=== PATIENT | female | born 1980 | race Caucasian/White ===

== ENCOUNTER 2023-05-09 12:08 | Emergency (ER) | payer BC ==
[~2023-05-09] VITALS: Ht 160 cm; Wt 87.5 kg
[2023-05-09 12:59] LABS: BILIRUBIN, URINE NEGATIVE (negative); BLOOD/HGB, URINE MODERATE (Negative); KETONE, URINE NEGATIVE (Negative); LEUK ESTERASE, URINE NEGATIVE (negative); NITRITE, URINE NEGATIVE (negative)
[2023-05-09 13:06] LABS: BASOPHILS 0.3 % (0-2); EOSINOPHILS 0.2 % (0-6); HEMATOCRIT 42.1 % (35.0-50.0); HEMOGLOBIN 14.4 g/dL (12.0-18.0); LYMPHOCYTES 14.1 % (24-44); MCH 28.3 (27-36); MCHC 34.2 g/dl (30-36); MCV 82.8 fl (81-99); MONOCYTES 4.6 % (0-12); NEUTROPHILS 80.8 % (39-80); PLATELET COUNT 340 K/uL (140-440); RBC 5.08 M/ul (4.3-5.7); RDW 15.8 (10.5-15.0)
[2023-05-09 13:13] LABS: BACTERIA, URINE NONE SEEN /hpf (negative); CASTS, URINE NONE SEEN \\lpf; COLLECTION TYPE, URINE CLEAN CATCH; CRYSTALS, URINE NONE SEEN (0-1+); EPITHELIAL CELLS, URINE SQUAMOUS 2+ /lpf (0-1+); REFLEX CULTURE, URINE No (No); WHITE BLOOD CELLS, URINE 0-1 /HPF (0-5)
[2023-05-09 13:22] LABS: ALBUMIN 4.3 g/dL (3.4-5.0); ALBUMIN/GLOBULIN RATIO 1.1 (1.1-2.4); ANION GAP 21.3 (7-21); BILIRUBIN, TOTAL 0.6 ng/dL (0.2-1.0); BUN/CREATININE RATIO 11.21 (6.0-28.6); CALCIUM 10.3 mg/dL (8.5-10.1); CREATININE, SERUM 1.07 mg/dL (0.55-1.02); POTASSIUM 3.3 mmol/L (3.5-5.1); PROTEIN, TOTAL 8.2 g/dL (6.4-8.2)
[2023-05-09] MEDS ORDERED: OXYCODONE HCL5 MG PO (15:54)
[2023-05-09] MEDS ORDERED: FLOMAX0.4 MG PO (15:54)
[2023-05-09] MEDS ORDERED: ONDANSETRON ODT8 MG PO (15:54)
[2023-05-09 17:30] VITALS: BP 161/90
== END 2023-05-09 17:30 | disposition home or self-care (01) ==
LOC: ED 12:08
PROVIDERS: Emergency Medicine
DX: N13.2 Hydronephrosis with renal and ureteral calculous obstruction (principal); Z88.0 Allergy status to penicillin; Z91.040 Latex allergy status
CPT/HCPCS: 36415; 74176; 80053; 81001; 84703; 85025; 96361; 96374; 96375; 96376; 99284-25; A9270; J1170; J1885; J2405; J7030